=== PATIENT | male | born 1940 | race Caucasian/White ===

== ENCOUNTER 2020-11-20 07:14 | Day surgery (SDC) | payer MEDICARE ==
[~2020-11-20] VITALS: Ht 180.3 cm; Wt 69.0 kg
[~2020-11-20 07:14] MED LIST: AMLO-211 PO; ASPI-963 PO; ATOR-2 PO; DONE5TAB7 PO; DUTA1CPM4 PO; ENOX40SY4 SQ; FINA5TAB4 PO; OMEP-110 PO; TAMS-11 PO
[2020-11-20 08:30] VITALS: BP 113/66
[2020-11-20] MEDS ORDERED: SODIUM CHLORIDE 0.9% 1,000 ML IV SCH (08:30)
[2020-11-20] MEDS ORDERED: CEFAZOLIN PMX 1GM/50ML 50 ML IV ONE (08:30)
[2020-11-20] MEDS ORDERED: NALOXONE 1 MG/ML, 2ML ONE (09:10)
[2020-11-20] MEDS ORDERED: FENTANYL PF 100 MCG/2ML ONE (09:10)
[2020-11-20] MEDS ORDERED: LIDOCAINE 1%, 10ML ONE (09:10)
[2020-11-20] MEDS ORDERED: FLUMAZENIL 0.1 MG/1 ML, 5ML ONE (09:10)
[2020-11-20] MEDS ORDERED: MIDAZOLAM 1 MG/ML, 5ML ONE ×2 (09:10)
[2020-11-20] MEDS ORDERED: VISIPAQUE 270 MG/ML, 50ML BOTTLE ONE (12:01)
== END 2020-11-20 10:59 | disposition home or self-care (01) ==
LOC: OUT 07:14
PROVIDERS: ATTEND Physician Assistant
DX: N31.9 Neuromuscular dysfunction of bladder, unspecified (principal); N34.2 Other urethritis; I10 Essential (primary) hypertension; I69.398 Other sequelae of cerebral infarction; Z79.899 Other long term (current) drug therapy
CPT/HCPCS: 51102; 75989; 77002; 99156; C1725; C1769; J0690; J2250; J3010; J7030; Q9966; 99157; J2310